=== PATIENT | female | born 1965 | race Caucasian/White ===

== ENCOUNTER 2017-02-04 12:44 | Emergency (ER) | payer OTHER ==
--- NOTE | ~2017-02-04 | CT4 ---
[facility] A Service of [facility] & [facility] RADIOLOGY TEXT RESULTS PATIENT: MICHELINE METCALF LOCATION: [facility] : 61 UNIT #: [id number] AGE: [address]: Gustavo Huizar DO SEX: F ORDER DR: [id number] [facility] [address] [place], [place] [address] [id number] E MR#: [id number] #: [id number] NAME: MICHELINE METCALF : 1965 SEX: F STUDY DATE/TIME: 02/04/2017 15:02 UNIT: [facility] ROOM: STUDY DESCRIPTION: CT Abd and Pelv Wo Cont Attending Physician: Gustavo Huizar D.O. Ordering Physician: Gustavo Huizar D.O. Primary Care Physician: Primary Care Physician No MEDICAL IMAGING REPORT This report is preliminary unless electronic signature is present EXAM CT abdomen and pelvis 02/04/2017 HISTORY Left flank pain for several months. No history of kidney stones. Hypertension, back and neck pain. Prior hysterectomy. Left knee surgery. TECHNIQUE This CT examination was performed with one or more of the following radiation dose reduction techniques: automatic exposure control, adjustment of mA and/or kV according to patient size, and iterative reconstruction. FINDINGS CT abdomen, pelvis performed without administration of oral or intravenous contrast. No prior dedicated CTs of the abdomen for comparison. Limited views of the upper abdomen from CT angiogram chest 05/15/2005. Minimal dependent atelectasis at the lung bases. Inferior heart and pericardium remarkable. The liver, gallbladder, spleen, pancreas, adrenal glands unremarkable. Right kidney and ureter unremarkable. The left kidney shows mild upper pole caliectasis. No perinephric inflammatory change or fluid collection. No intrarenal calculi. The left ureter is normal in caliber. In the left deep pelvis, there is a 2-3 mm calcification in close proximity to the left ureter. I believe that it is a phlebolith immediately adjacent to the ureter. Suspicion for true intrarenal calculus is very low particularly in light of no ureteral distension or periureteral inflammatory change. No pelvic or retroperitoneal adenopathy. Distal esophagus, stomach, small bowel unremarkable. Appendix normal. Colon shows left hemicolon uncomplicated diverticulosis. There is no free fluid in the pelvis. Uterus and adnexal regions notable for bilateral tubal ligation clips. Scattered atherosclerotic arterial calcifications. No aneurysm. Bony structures unremarkable. [facility]. [facility] A Service of [facility] & [facility] RADIOLOGY TEXT RESULTS PATIENT: MICHE[facility] METCALF [id number] [birth year] UNIT #: [id number] AGE: [address]: Gustavo Huizar DO SEX: F ORDER DR: IMPRESSION 1. No intrarenal calculi are seen. There is very mild left upper pole caliectasis favored to be the normal physiologic state for this patient. The left ureter is nondilated. There is a 2-3 mm calculus in the deep left pelvis in close proximity to the left ureter but I favor that this is a phlebolith immediately adjacent to the ureter particularly given the lack of any ureteral distension or periureteral inflammatory change. 2. Kidneys, ureters, urinary bladder otherwise unremarkable. 3. Gallbladder, pancreas, appendix normal. 4. Left hemicolon diverticulosis without evidence of diverticulitis. 5. Bilateral tubal ligation. Uterus and adnexal regions show no acute abnormality. 6. See remainder of incidental findings in body of report above. Dictated by... Figueroa Fernandes M.D. THIS IS AN ELECTRONICALLY VERIFIED REPORT Figueroa Fernandes M.D. at 02/05/2017 9:03 AM DIEGO/parish TD: 02/05/2017 08:00 JOB #: [id number] MEDICAL IMAGING REPORT Page 1 of 1 COPY
[~2017-02-04 12:44] MED LIST: AMITRYPTYLINE; BACTRIM DS TABL1 TA1 PO; DISCONTINUED MED; EC-NAPROSYN500 MG PO; FLEXERIL10 MG PO; MOBIC PO; NAPROSYN500 MG PO; NO MEDICATIONS; PAXIL PO; PYRIDIUM PO; ULTRAM PO; VOLTAREN75 MG PO
[2017-02-04 13:34] LABS: URINE SOURCE CLEAN CATCH
[2017-02-04 13:40] LABS: URINE APPEARANCE CLEAR; URINE BILIRUBIN NEG (NEG); URINE BLOOD 2+ (NEG); URINE COLOR DK YELLOW; URINE GLUCOSE NEG (NEG); URINE KETONE TRACE (NEG); URINE LEUKOCYTE ESTERASE NEG (NEG); URINE NITRATE NEG (NEG); URINE PROTEIN NEG (NEG)
[2017-02-04 13:42] LABS: CULTURE INDICATED? YES; URINE BACTERIA AUWI 2+ (NEGATIVE); URINE SQUAMOUS EPITHELIAL CELL OCC /[HPF]; UWBCS1 AUWI 0-2 (0-5)
[2017-02-04 13:52] LABS: BASOPHIL% 0.5 % (0-2.5); EOSINOPHIL# 0.1 X10e3 (0-0.7); EOSINOPHIL% 1.1 % (0.0-7.0); HEMATOCRIT 44.9 % (35.0-45.0); HEMOGLOBIN 15.1 gm/dL (12.0-16.0); LYMPHOCYTE# 2.5 X10e3 (1.0-3.5); LYMPHOCYTE% 33.9 % (17.0-45.0); MEAN CELL VOLUME 94.1 FL (83-96); MEAN CORPUSCULAR HEMOGLOBIN 31.7 PG (28-34); MEAN CORPUSCULAR HGB CONC 33.6 g/dL (30-36); MEAN PLATELET VOLUME 8.9 FL (6.5-11.5); MONOCYTE# 0.3 X10e3 (0-1.0); MONOCYTE% 4.8 % (3.0-12.0); NEUTROPHIL# 4.4 X10e3 (1.5-7.1); NEUTROPHIL% 59.7 % (40-75); PLATELET COUNT 225 X10e3 (140-420); RED BLOOD COUNT 4.78 X10e (3.90-5.30); RED CELL DISTRIBUTION WIDTH 13.2 % (11.0-15.5); WHITE BLOOD COUNT 7.3 X10e3 (4.0-10.5)
[2017-02-04 13:53] LABS: DIFF IND NO
[2017-02-04 14:21] LABS: ALBUMIN SERUM 4.7 g/dL (3.5-5.0); BILIRUBIN, DIRECT 0.1 mg/dL (0.0-0.2); BILIRUBIN,INDIRECT 0.5 mg/dL (0.0-0.9); BILIRUBIN,TOTAL 0.6 mg/dL (0.2-2.0); CALCIUM SERUM 9.4 mg/dL (8.4-10.2); CREATININE SERUM 0.5 mg/dL (0.6-1.4); GLOM FILT RATE Estimated 110.5 mL/min (>60); POTASSIUM 3.8 mmol/L (3.5-5.1); PROTEIN TOTAL SERUM 7.7 g/dL (6.0-8.3)
== END 2017-02-04 17:29 | disposition home or self-care (01) ==
LOC: CED 12:44
PROVIDERS: Emergency Medicine
DX: N39.0 Urinary tract infection, site not specified (principal); I10 Essential (primary) hypertension; F17.200 Nicotine dependence, unspecified, uncomplicated; Z90.710 Acquired absence of both cervix and uterus; Z88.5 Allergy status to narcotic agent; Z79.899 Other long term (current) drug therapy
CPT/HCPCS: 36415; 74176; 80048; 80076; 81003; 83690; 85025; 87086; 99284